=== PATIENT | male | born 1985 | race Two or more races ===

== ENCOUNTER 2023-08-06 09:50 | Emergency (ER) | payer BC, OTHER ==
[~2023-08-06] VITALS: Ht 170.2 cm; Wt 91.0 kg
[2023-08-06] MEDS: SODIUM CHLORIDE 0.9% 1,000 ML IV ONE ×2 (10:27→13:29)
[2023-08-06 10:30] LABS: Basophils # (auto) 0 10 ^3/uL (0-0.2); Basophils % (auto) 0.5 % (0.0-2.0); Eosinophils # (auto) 0.2 10 ^3/uL (0-0.8); Hematocrit 44.9 % (41.0-53.0); Hemoglobin 15.2 g/dL (13.5-17.5); Lymphocytes # (auto) 2.2 10 ^3/uL (0.4-5.4); Lymphocytes % (auto) 27.9 % (10.0-50.0); Mean Corpuscular Hemoglobin 29.7 pg (28.0-32.0); Mean Corpuscular Hgb Conc. 33.8 g/dL (32.0-36.0); Monocytes # (auto) 0.8 10 ^3/uL (0-1.3); Monocytes % (auto) 9.8 % (0.0-12.0); Neutrophils # (auto) 4.7 10 ^3/uL (1.6-8.6); Neutrophils % (auto) 59.8 % (37.0-80.0); Nucleated Red Blood Cells % 0.1 %; Red Blood Cells 5.11 10^6/uL (4.5-5.90); Red Cell Distribution Width 13.1 % (11.8-14.3); White Blood Cell 7.8 10^3/uL (4.4-10.8)
[2023-08-06 10:54] LABS: Chloride 102 mmol/L (98-107); Potassium 3.5 mmol/L (3.5-5.1); Sodium 138 mmol/L (136-145)
[2023-08-06 10:55] LABS: Anion Gap 10 (5-15); Calcium 9.5 mg/dL (8.5-10.1); Carbon Dioxide 26 mmol/L (20-30)
[2023-08-06 11:00] LABS: BUN/Creatinine Ratio 9.9 (10.0-20.0); Blood Urea Nitrogen 9 mg/dL (9-23); Glucose 178 mg/dL (74-106)
[2023-08-06] MEDS: LORazepam 2MG/ML-1ML VIAL IV ONE (11:42)
[2023-08-06] MEDS: ONDANSETRON ODT 4 MG TAB PO ONE (13:29)
[2023-08-06] MEDS ORDERED: ZOFR4T PO (15:22)
[2023-08-06] MEDS ORDERED: CHL10C PO (15:26)
[2023-08-06 15:40] VITALS: BP 125/83; PULSE 96; RESP 18; TEMP 98.1; O2SAT 98
== END 2023-08-06 15:42 | disposition home or self-care (01) ==
LOC: EDBD 09:50 → ER 09:50
DX: F10.939 Alcohol use, unspecified with withdrawal, unspecified (principal); F15.90 Other stimulant use, unspecified, uncomplicated; R42 Dizziness and giddiness; R11.10 Vomiting, unspecified; F41.9 Anxiety disorder, unspecified; R53.1 Weakness; E11.9 Type 2 diabetes mellitus without complications; Z87.891 Personal history of nicotine dependence; Y90.0 Blood alcohol level of less than 20 mg/100 ml
CPT/HCPCS: 36415; 80048; 80320; 85025; 96361; 96374; 99283; J2060; J7030; Q0162

== ENCOUNTER 2023-11-26 11:51 | Emergency (ER) | payer BC ==
[~2023-11-26] VITALS: Ht 170.2 cm; Wt 95.4 kg
[~2023-11-26 11:51] MED LIST: CHL10C PO; ZOFR4T PO
[2023-11-26 12:59] VITALS: BP 132/69; PULSE 78; RESP 17; TEMP 97.5; O2SAT 96
[2023-11-26] MEDS ORDERED: IBUP-1456 PO (13:34)
[2023-11-26] MEDS ORDERED: BACL10TA PO (13:34)
== END 2023-11-26 13:37 | disposition home or self-care (01) ==
LOC: ER 11:54
DX: S16.1XXA Strain of muscle, fascia and tendon at neck level, initial encounter (principal); Z79.899 Other long term (current) drug therapy; V43.52XA Car driver injured in collision with other type car in traffic accident, initial encounter; Y93.89 Activity, other specified; Y92.89 Other specified places as the place of occurrence of the external cause; Y99.8 Other external cause status
CPT/HCPCS: 72040